=== PATIENT | female | born 1990 | race Caucasian/White ===

== ENCOUNTER 2024-01-30 09:51 | Emergency (ER) | payer SELFPAY ==
--- NOTE | 2024-01-30 11:40 | RAD REPORT ---
EXAM: Chest Pa And Lat (2 Views) HISTORY: COUGH COMPARISON: None. FINDINGS: LUNGS/PLEURA: The lungs are clear. No pleural effusions or pneumothorax. No pulmonary edema. MEDIASTINUM: The mediastinal silhouette is within normal limits. CARDIAC: The cardiac silhouette is within normal limits. UPPER ABDOMEN: No significant abnormality. BONES: No acute fracture. LINES/TUBES/OTHER: N/A IMPRESSION: No evidence of acute cardiopulmonary disease.
--- NOTE | 2024-01-30 12:44 | EDPHYS ---
Physician Documentation [facility] Name: Breanna Rocha Age: 33 yrs Sex: Female : 1990 Arrival Date: 01/30/2024 Time: 09:51 Bed 12 Private MD: ED Physician Karl Alford HPI: 01/29 12:38 This 33 yrs old Female presents to ER via Ambulatory with complaints of Flu Symptoms. bo1 12:38 Hx of exposure to child with flu positive two weeks ago. Onset: The symptoms/episode bo1 began/occurred gradually. Severity of symptoms: At their worst the symptoms were mild. Hx of green cough since gi. 12:47 Onset: The symptoms/episode began/occurred 3 week(s) ago. 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 - Infectious Disease History:: Denies. - Social history:: Smoking status: Patient reports use of chewing tobacco. ROS: 12:40 Constitutional: Negative for fever, chills, and weight loss bo1 12:40 Neck: Negative for pain at rest, 12:40 Cardiovascular: Negative for chest pain, 12:40 Respiratory: Positive for cough, Sputum production, Negative for hemoptysis, shortness of breath, wheezing, 12:40 Abdomen/GI: Negative for abdominal pain, nausea and vomiting, 12:40 All other systems are negative, Exam: 12:41 Constitutional: This is a well developed, well nourished patient who is awake, alert, bo1 and in no acute distress. 12:41 Constitutional: The patient appears alert, awake, comfortable, non-toxic, 12:41 Eyes: Sclera: no appreciated abnormality, 12:41 Chest/axilla: Inspection: normal, 12:41 Cardiovascular: Rate: normal, Rhythm: regular, Pulses: no pulse deficits are appreciated, 12:41 Respiratory: the patient does not display signs of respiratory distress, Respirations: normal, no acute changes, Breath sounds: are clear throughout, no wheezing, Vital Signs: 10:46 BP 124 / 86; Pulse 93; Resp 15; Temp 98.7; Pulse Ox 98% ; Weight 120.2 kg; Height 5 ft. jl7 7 in. ; Pain 5/10; 13:13 Pulse 90; Resp 17; Temp 98.2; Pulse Ox 99% ; jl7 10:46 Body Mass Index 41.50 (120.20 kg, 170.18 cm) jl7 10:46 Pain Scale: Adult jl7 MDM: 11:19 Medical Screening Exam initiated bo1 12:42 Differential Diagnosis flu, Bronchitis. Data reviewed: vital signs, radiologic studies, bo1 plain films. ED course: Pt has acute bronchitis and will be treated with azithromycin PO along with her child present. 01/29 10:49 Order name: XRAY Chest Pa And Lat (2 Views); Complete Time: 12:25 jl7 Administered Medications: No medications were administered Disposition Summary: 01/30/24 12:44 Discharge Ordered Notes: Location: Home bo1 Problem: new bo1 Symptoms: are unchanged bo1 Condition: Stable bo1 Diagnosis - Acute bronchitis, unspecified bo1 - Cough bo1 Followup: bo1 - With: Private Physician - When: Upon discharge from the Emergency Department - Reason: Recheck today's complaints, Continuance of care Discharge Instructions: - Discharge Summary Sheet bo1 - Acute Bronchitis, Adult bo1 - Cough, Adult bo1 Forms: - Medication Reconciliation Form bo1 - Antibiotic Education bo1 - Prescription Opioid Use bo1 - Patient Portal Instructions bo1 - Leadership Thank You Letter bo1 Prescriptions: - azithromycin 500 mg Oral tablet - take 1 tablet ORAL route daily for 10 days; 10 tablet; Refills: 0, Product bo1 Selection Permitted - Tessalon Perles 100 mg Oral Capsule - take 1 capsule ORAL route every 8 hours As needed; 15 capsule; Refills: 0, bo1 Product Selection Permitted Signatures: Dispatcher [employer] Jessica Garcia RN RN jl7 Karl Alford MD MD bo1 Corrections: (The following items were deleted from the chart) 10:50 10:50 Chest Pa And Lat (2 Views)+RAD.RAD.BRZ ordered. EDMS EDMS
--- NOTE | 2024-01-30 12:44 | ER ---
Nurse's Notes [facility] Name: Breanna Rocha Age: 33 yrs Sex: Female : 1990 Arrival Date: 01/30/2024 Time: 09:51 Bed 12 Private MD: Diagnosis: Acute bronchitis, unspecified;Cough Presentation: 01/29 10:46 Chief complaint: Patient states: Had the flu 3 weeks ago started with productive cough jl7 on giving. Coronavirus screen: At this time, the client does not indicate any symptoms associated with coronavirus-19. Ebola Screen: No symptoms or risks identified at this time. Initial Sepsis Screen: Does the patient meet any 2 criteria? No. Patient's initial sepsis screen is negative. Does the patient have a suspected source of infection? No. Patient's initial sepsis screen is negative. Risk Assessment: Do you want to hurt yourself or someone else? Patient reports no desire to harm self or others. Onset of symptoms was January 25, 2024. 10:46 Method Of Arrival: Ambulatory jl7 10:46 Acuity: ANNIE 3 jl7 Triage Assessment: 10:48 General: Appears in no apparent distress. uncomfortable, Behavior is calm, cooperative, jl7 appropriate for age. Pain: Complains of pain in back and chest Pain currently is 5 out of 10 on a pain scale. Quality of pain is described as sore from coughing. 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 - Infectious Disease History:: Denies. - Social history:: Smoking status: Patient reports use of chewing tobacco. Screenin:13 Abuse screen: Denies threats or abuse. Denies injuries from another. Nutritional jl7 screening: No deficits noted. Tuberculosis screening: No symptoms or risk factors identified. Assessment: 12:30 Reassessment: Dr. Alford at bedside assessing pt. jl7 Vital Signs: 10:46 BP 124 / 86; Pulse 93; Resp 15; Temp 98.7; Pulse Ox 98% ; Weight 120.2 kg; Height 5 ft. jl7 7 in. ; Pain 5/10; 13:13 Pulse 90; Resp 17; Temp 98.2; Pulse Ox 99% ; jl7 10:46 Body Mass Index 41.50 (120.20 kg, 170.18 cm) jl7 10:46 Pain Scale: Adult jl7 ED Course: 10:01 Patient arrived in ED. im 10:48 Triage completed. jl7 10:48 Arm band placed on right wrist. Patient placed in waiting room, Patient notified of jl7 wait time. 11:19 Karl Alford MD is Attending Physician. bo1 11:37 XRAY Chest Pa And Lat (2 Views) In Process Unspecified. EDMS 12:18 Jessica Mckeon, RN is Primary Nurse. jl7 13:13 Patient has correct armband on for positive identification. jl7 13:13 No provider procedures requiring assistance completed. Patient did not have IV access jl7 during this emergency room visit. Administered Medications: No medications were administered Medication: 13:13 VIS not applicable for this client. jl7 Outcome: 12:44 Discharge ordered by . bo1 13:13 Discharged to home ambulatory, jl7 13:13 Condition: stable 13:13 Discharge instructions given to patient, Instructed on discharge instructions, follow up and referral plans. medication usage, Demonstrated understanding of instructions, follow-up care, medications, Prescriptions given X 2, 13:14 Patient left the ED. jl7 Signatures: Dispatcher [employer] EDMS Jessica Mckeon, RN RN jl7 Tayler Lau Karl Alford MD MD bo1
[2024-01-30 13:39] VITALS: BP 124/86
[2024-01-30 13:40] VITALS: TEMP 98.2; O2SAT 99
== END 2024-01-30 13:14 | disposition home or self-care (01) ==
LOC: ER 09:51
DX: J20.9 Acute bronchitis, unspecified (principal); R05.9 Cough, unspecified; F17.220 Nicotine dependence, chewing tobacco, uncomplicated; Z88.2 Allergy status to sulfonamides; Z88.5 Allergy status to narcotic agent; Z91.040 Latex allergy status
CPT/HCPCS: 71046; 99283

== ENCOUNTER 2024-06-11 13:28 | Emergency (ER) | payer SELFPAY ==
[2024-06-11 14:25] LABS: Influenza A Ag Negative; Influenza B Ag Negative; SARS-CoV-2 Antigen Rapid Res Negative (Negative)
--- NOTE | 2024-06-11 14:35 | RAD REPORT ---
EXAMINATION: ONE VIEW CHEST XR CLINICAL INDICATION: Congestion;Cough TECHNIQUE: Frontal chest projection is submitted. Examination is limited by patient positioning and t echnique. COMPARISON: No prior exam. FINDINGS: The lungs are well inflated and clear. The heart is upper limit of normal in size. No displaced fract ures identified. IMPRESSION: No acute intrathoracic abnormalities.
--- NOTE | 2024-06-11 15:34 | EDPHYS ---
Physician Documentation [facility] Name: Breanna Rocha Age: 34 yrs Sex: Female : 1990 Arrival Date: 06/11/2024 Time: 13:28 Bed Treatment Private MD: ED Physician Melida Tejada HPI: 06/11 15:31 This 34 yrs old Female presents to ER via Ambulatory with complaints of Flu Symptoms, sp3 Sore Throat. 15:31 34-year-old female with no significant past medical history presents with chief sp3 complaint sore throat, cough, congestion and shortness of breath. She denies any fever, headache, chest pain, known sick contacts, travel history, prolonged immobilization, prior DVT or PE, or any other signs or symptoms on ROS at this time. Her biggest complaint is sore throat.. Historical: - Allergies: 13:58 Codeine; iw 13:58 Latex; iw 13:58 Sulfa (Sulfonamide Antibiotics); iw - Home Meds: 13:58 phentermine oral daily [Active]; iw - PMHx: 13:58 None; iw - PSHx: 13:58 Cholecystectomy; iw ROS: 15:32 Constitutional: Negative for fever, chills, and weight loss, Eyes: Negative for injury, sp3 pain, redness, and discharge, Neck: Negative for injury, pain, and swelling, Cardiovascular: Negative for chest pain, palpitations, and edema, Abdomen/GI: Negative for abdominal pain, nausea, vomiting, diarrhea, and constipation, Back: Negative for injury and pain, MS/Extremity: Negative for injury and deformity, Skin: Negative for injury, rash, and discoloration, Neuro: Negative for headache, weakness, numbness, tingling, and seizure, Psych: Negative for depression, anxiety, suicide ideation, homicidal ideation, and hallucinations, Allergy/Immunology: Negative for hives, rash, and allergies, Endocrine: Negative for neck swelling, polydipsia, polyuria, polyphagia, and marked weight changes, Hematologic/Lymphatic: Negative for swollen nodes, abnormal bleeding, and unusual bruising, 15:32 All other systems are negative, Exam: 15:32 Constitutional: This is a well developed, well nourished patient who is awake, alert, sp3 and in no acute distress. Head/Face: Normocephalic, atraumatic. Eyes: Pupils equal round and reactive to light, extra-ocular motions intact. Lids and lashes normal. Conjunctiva and sclera are non-icteric and not injected. Cornea within normal limits. Periorbital areas with no swelling, redness, or edema. Neck: Trachea midline, no thyromegaly or masses palpated, and no cervical lymphadenopathy. Supple, full range of motion without nuchal rigidity, or vertebral point tenderness. No Meningismus. Chest/axilla: Normal chest wall appearance and motion. Nontender with no deformity. No lesions are appreciated. Cardiovascular: Regular rate and rhythm with a normal S1 and S2. No gallops, murmurs, or rubs. Normal PMI, no JVD. No pulse deficits. Abdomen/GI: Soft, non-tender, with normal bowel sounds. No distension or tympany. No guarding or rebound. No evidence of tenderness throughout. Back: No spinal tenderness. No costovertebral tenderness. Full range of motion. Skin: Warm, dry with normal turgor. Normal color with no rashes, no lesions, and no evidence of cellulitis. MS/ Extremity: Pulses equal, no cyanosis. Neurovascular intact. Full, normal range of motion. Neuro: Awake and alert, GCS 15, oriented to person, place, time, and situation. Cranial nerves II-XII grossly intact. Motor strength 5/5 in all extremities. Sensory grossly intact. Cerebellar exam normal. Normal gait. Psych: Awake, alert, with orientation to person, place and time. Behavior, mood, and affect are within normal limits. 15:32 ENT: Mild pharyngeal erythema noted. No tonsillar exudates, peritonsillar swelling, uvular shift or any other symptoms noted. Patient does have an active cough.. Vital Signs: 13:56 BP 134 / 92; Pulse 112; Resp 19; Temp 98.9; Pulse Ox 100% on R/A; Pain 7/10; iw 13:56 Pain Scale: Adult iw MDM: 13:53 Medical Screening Exam initiated sp3 15:32 Data reviewed: vital signs, nurses notes, lab test result(s), radiologic studies. ED sp3 course: 34-year-old female with upper respiratory infection. Differential diagnosis includes bronchitis, pneumonia, COVID-19, influenza, viral illness, strep pharyngitis, among others. Workup includes chest x-ray which is negative and all swabs are also negative. Patient will receive Decadron 10 mg IM and discharged home on Medrol, Tessalon and OTC Mucinex D. Follow-up with PCP as needed.. 06/11 13:54 Order name: COVID-19 Ag + Flu A+B Ag; Complete Time: 15:06 sp3 06/11 13:54 Order name: Group A Streptococcus Rapid; Complete Time: 15:06 sp3 06/11 14:18 Order name: Throat Culture EDMS 06/11 13:54 Order name: CXR XRAY; Complete Time: 15:06 sp3 Administered Medications: 15:57 Drug: Dexamethasone IM 10 mg IM once Route: IM; Site: left gluteus; jb4 15:57 Follow up: Response: Medication administered at discharge. jb4 Disposition Summary: 06/11/24 15:33 Discharge Ordered Notes: Location: Home sp3 Condition: Stable sp3 Diagnosis - Upper respiratory infection, viral illness sp3 Followup: sp3 - With: Private Physician - When: Upon discharge from the Emergency Department - Reason: Continuance of care Discharge Instructions: - Discharge Summary Sheet sp3 - Upper Respiratory Infection, Adult sp3 Forms: - Medication Reconciliation Form sp3 - Antibiotic Education sp3 - Prescription Opioid Use sp3 - Patient Portal Instructions sp3 - Leadership Thank You Letter sp3 Prescriptions: - Tessalon Perles 100 mg Oral Capsule - take 1 capsule ORAL route every 8 hours As needed; 15 capsule; Refills: 0, sp3 Product Selection Permitted - Medrol (Robb) 4 mg Oral Tablets, Dose Pack - take 1 tablet ORAL route as directed - follow package instructions; 1 packet; sp3 Refills: 0, Product Selection Permitted Signatures: Dispatcher [employer] EDMS Melissa Cordoba RN RN iw Bryson, James, RN RN jb4 Melida Tejada MD MD sp3 Corrections: (The following items were deleted from the chart) 13:54 13:54 COVID-19 Ag + Flu A+B Ag+I.LAB.BRZ ordered. EDMS EDMS 13:54 13:54 Group A Streptococcus Rapid Sc+I.LAB.BRZ ordered. EDMS EDMS
--- NOTE | 2024-06-11 15:34 | ER ---
Nurse's Notes [facility] Name: Breanna Rocha Age: 34 yrs Sex: Female : 1990 Arrival Date: 06/11/2024 Time: 13:28 Bed Treatment Private MD: Diagnosis: Upper respiratory infection, viral illness Presentation: 06/11 13:56 Chief complaint: Patient states: cough, congestion. body aches, migraines X 2 weeks, iw started having a sore throat with pus pockets 2 days ago , + fever today. Coronavirus screen: Client presents with at least one sign or symptom that may indicate coronavirus-19. Ebola Screen: No symptoms or risks identified at this time. Initial Sepsis Screen: Does the patient meet any 2 criteria? HR > 90 bpm. Does the patient have a suspected source of infection?. Risk Assessment: Do you want to hurt yourself or someone else? Patient reports no desire to harm self or others. Onset of symptoms was May 28, 2024. 13:56 Method Of Arrival: Ambulatory iw 13:56 Acuity: ANNIE 4 iw Historical: - Allergies: 13:58 Codeine; iw 13:58 Latex; iw 13:58 Sulfa (Sulfonamide Antibiotics); iw - Home Meds: 13:58 phentermine oral daily [Active]; iw - PMHx: 13:58 None; iw - PSHx: 13:58 Cholecystectomy; iw Screenin:58 [facility] ED Fall Risk Assessment (Adult) History of falling in the last 3 months, jb4 including since admission No falls in past 3 months (0 pts) Confusion or Disorientation No (0 pts) Intoxicated or Sedated No (0 pts) Impaired Gait No (0 pts) Mobility Assist Device Used No (0 pt) Altered Elimination No (0 pt) Score/Fall Risk Level 0 - 2 = Low Risk Oriented to surroundings, Maintained a safe environment. Abuse screen: Denies threats or abuse. Nutritional screening: No deficits noted. Tuberculosis screening: No symptoms or risk factors identified. Assessment: 15:58 General: Appears in no apparent distress. uncomfortable, Behavior is calm, cooperative, jb4 appropriate for age. Pain: Complains of pain in sore throat. Neuro: Level of Consciousness is awake, alert, obeys commands, Oriented to person, place, time, situation. Cardiovascular: Patient's skin is warm and dry. Respiratory: Airway is patent Respiratory effort is even, unlabored, Respiratory pattern is regular, symmetrical. EENT: Throat is clear with gag reflex present. Derm: Skin is intact, Skin is pink, warm \T\ dry. Musculoskeletal: Circulation, motion, and sensation intact. Range of motion: intact in all extremities. Vital Signs: 13:56 BP 134 / 92; Pulse 112; Resp 19; Temp 98.9; Pulse Ox 100% on R/A; Pain 7/10; iw 13:56 Pain Scale: Adult iw ED Course: 13:35 Patient arrived in ED. cj3 13:38 Melida Tejada MD is Attending Physician. sp3 13:58 Triage completed. iw 14:14 CXR XRAY In Process Unspecified. EDMS 15:58 Patient has correct armband on for positive identification. Bed in low position. Call jb4 light in reach. Side rails up X 1. Provided Education on: plan of care. 15:58 No provider procedures requiring assistance completed. Patient did not have IV access jb4 during this emergency room visit. Administered Medications: 15:57 Drug: Dexamethasone IM 10 mg IM once Route: IM; Site: left gluteus; jb4 15:57 Follow up: Response: Medication administered at discharge. jb4 Medication: 15:58 VIS not applicable for this client. jb4 Outcome: 15:33 Discharge ordered by . sp3 15:58 Discharged to home ambulatory, jb4 15:58 Condition: stable 15:58 Discharge instructions given to patient, Instructed on discharge instructions, follow up and referral plans. medication usage, Demonstrated understanding of instructions, follow-up care, medications, Prescriptions given X 2, 15:59 Patient left the ED. jb4 Signatures: Dispatcher [employer] EDMS Melissa Cordoba, Gaurang Ferguson RN, RN RN jb4 Melida Tejada MD MD sp3 Ammy Cummings cj3
[2024-06-11] MEDS ORDERED: dexAMETHasone 10 MG/ML VIAL ONE (15:44)
[2024-06-11 16:31] VITALS: BP 134/92; TEMP 98.9; O2SAT 100
== END 2024-06-11 15:59 | disposition home or self-care (01) ==
LOC: ER 13:28
DX: B34.9 Viral infection, unspecified (principal); J06.9 Acute upper respiratory infection, unspecified; Z11.52 Encounter for screening for COVID-19
CPT/HCPCS: 36415; 71045; 87070; 87428; J1100

== ENCOUNTER 2024-11-22 11:45 | Emergency (ER) | payer SELFPAY ==
[2024-11-22] MEDS ORDERED: ONDANSETRON 4 MG/2 ML VIAL ONE (13:18)
[2024-11-22] MEDS ORDERED: KETOROLAC 30 MG/ML INJ ONE (13:18)
[2024-11-22] MEDS ORDERED: DIAZEPAM 5 MG TABLET ONE (13:19)
[2024-11-22] MEDS ORDERED: NA CHLORIDE 0.9% 1,000 ML ONE (13:19)
[2024-11-22] MEDS ORDERED: FENTANYL CITR 100 MCG/2 ML ONE (13:19)
[2024-11-22 13:49] LABS: Absolute Lymphocytes (CBC) 2.6 K/uL (0.7-4.9); Hematocrit 39.6 % (36.0-45.0); Hemoglobin 13.3 g/dL (12.0-15.0); MCH 26.9 pg (27.0-35.0); MCHC 33.5 g/dL (32.0-36.0); MCV 80.4 fL (80-100); MPV 8.1 fL (7.6-11.3); Nucleated RBC Absolute Count 0.0 (0-0); Nucleated Red Blood Cells % 0.0 % (0-0); RBC Red Blood Cell Count 4.93 M/uL (3.86-4.86); White Blood Count 8.60 thou/uL (4.3-10.9)
[2024-11-22 14:09] LABS: ALT/SGPT 31.0 U/L (13-56); Albumin 3.9 g/dL (3.4-5.0); Albumin/Globulin Ratio 1.1 (1.1-1.8); Alkaline Phosphatase 74.0 U/L (45-117); Anion Gap 8.8 mEq/L (5.0-15.0); BUN Blood Urea Nitrogen 9.0 mg/dL (7-18); Globulin 3.7 g/dL (2.3-3.5); Glucose Level 84.0 mg/dL (74-106)
[2024-11-22 14:10] LABS: AST/SGOT 24.0 U/L (15-37); Potassium 3.8 mEq/L (3.5-5.1)
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
--- NOTE | 2024-11-22 16:57 | EDPHYS ---
Physician Documentation [facility] Name: Breanna Rocha Age: 34 yrs Sex: Female : 1990 Arrival Date: 11/22/2024 Time: 11:45 Bed 19 Private MD: ED Physician Saul Gomes HPI: 11/22 16:38 This 34 yrs old Female presents to ER via Ambulatory with complaints of Neck tierra Problem. 16:38 The patient or guardian complains of pain, that is acute. The symptoms are located at tierra the cervical spine. Onset: The symptoms/episode began/occurred this morning, today. Context: The problem was sustained at home, The neck injury/problem resulted from movement. 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 - Infectious Disease History:: Denies. - Social history:: Smoking status: Patient reports the use of cigarette tobacco products, smokes one-half pack cigarettes per day. ROS: 16:53 Constitutional: Negative for fever, chills, and weight loss, Eyes: Negative for injury, tierra pain, redness, and discharge, ENT: Negative for injury, pain, and discharge, Cardiovascular: Negative for chest pain, palpitations, and edema, Respiratory: Negative for shortness of breath, cough, wheezing, and pleuritic chest pain, Abdomen/GI: Negative for abdominal pain, nausea, vomiting, diarrhea, and constipation, Back: Negative for injury and pain, : Negative for injury, bleeding, discharge, and swelling, MS/Extremity: Negative for injury and deformity, Skin: Negative for injury, rash, and discoloration, Neuro: Negative for headache, weakness, numbness, tingling, and seizure, Psych: Negative for depression, anxiety, suicide ideation, homicidal ideation, and hallucinations, Allergy/Immunology: Negative for hives, rash, and allergies, Endocrine: Negative for neck swelling, polydipsia, polyuria, polyphagia, and marked weight changes, Hematologic/Lymphatic: Negative for swollen nodes, abnormal bleeding, and unusual bruising, 16:53 Neck: Positive for pain with movement, pain at rest, tenderness, of the occiput, right mid cervical area and right trapezius, Exam: 16:53 Constitutional: This is a well developed, well nourished patient who is awake, alert, tierra and in no acute distress. Head/Face: Normocephalic, atraumatic. Eyes: Pupils equal round and reactive to light, extra-ocular motions intact. Lids and lashes normal. Conjunctiva and sclera are non-icteric and not injected. Cornea within normal limits. Periorbital areas with no swelling, redness, or edema. ENT: Nares patent. No nasal discharge, no septal abnormalities noted. Tympanic membranes are normal and external auditory canals are clear. Oropharynx with no redness, swelling, or masses, exudates, or evidence of obstruction, uvula midline. Mucous membranes moist. Chest/axilla: Normal chest wall appearance and motion. Nontender with no deformity. No lesions are appreciated. Cardiovascular: Regular rate and rhythm with a normal S1 and S2. No gallops, murmurs, or rubs. Normal PMI, no JVD. No pulse deficits. Respiratory: Lungs have equal breath sounds bilaterally, clear to auscultation and percussion. No rales, rhonchi or wheezes noted. No increased work of breathing, no retractions or nasal flaring. Abdomen/GI: Soft, non-tender, with normal bowel sounds. No distension or tympany. No guarding or rebound. No evidence of tenderness throughout. Back: No spinal tenderness. No costovertebral tenderness. Full range of motion. Skin: Warm, dry with normal turgor. Normal color with no rashes, no lesions, and no evidence of cellulitis. MS/ Extremity: Pulses equal, no cyanosis. Neurovascular intact. Full, normal range of motion., bilateral aka Neuro: Awake and alert, GCS 15, oriented to person, place, time, and situation. Cranial nerves II-XII grossly intact. Motor strength 5/5 in all extremities. Sensory grossly intact. Cerebellar exam normal. Normal gait. Psych: Awake, alert, with orientation to person, place and time. Behavior, mood, and affect are within normal limits. 16:53 Neck: External neck: tenderness, that is moderate, of the occiput, right mid cervical area and right trapezius, C-spine: appears grossly normal, no acute changes, Vital Signs: 12:11 BP 140 / 84; Pulse 93; Resp 16; Temp 98.3(O); Pulse Ox 99% ; Weight 122.47 kg; Height 5 db ft. 7 in. ; Pain 7/10; 15:03 BP 137 / 79; Pulse 85; Resp 16; Pulse Ox 99% ; bp 12:11 Body Mass Index 42.29 (122.47 kg, 170.18 cm) db 12:11 Pain Scale: Adult db MDM: 12:11 Medical Screening Exam initiated tierra 16:54 Data reviewed: lab test result(s), radiologic studies, CT scan. Consideration of tierra Admission/Observation Escalation of care including admission/observation considered. I considered the following discharge prescriptions or medication management in the emergency department Medications were administered in the Emergency Department. See MAR. Independent interpretation of the following test(s) in the Emergency Department CT Scan: My interpretation is ct c spine. Test considered but Not performed: MRI: no mri. Historians other than the Patient: Family Member: well informed. Care significantly affected by the following chronic conditions: meningitis, [place], nerve damage. Counseling: I had a detailed discussion with the patient and/or guardian regarding the historical points, exam findings, and any diagnostic results supporting the discharge/admit diagnosis, lab results, radiology results, the need for outpatient follow up, for definitive care, a family practitioner. 11/22 12:12 Order name: CBC with Diff; Complete Time: 16: [facility] 11/22 12:12 Order name: CMP; Complete Time: 16: [facility] 11/22 12:12 Order name: PREGU; Complete Time: : [facility] 11/22 16:26 Order name: CT C Spine [facility] Administered Medications: 13:41 Not Given (Patient Refused): fentanyl (pf)50 mcg IVP once bp 13:41 Drug: Decadron - Dexamethasone IVP 10 mg IVP once Route: IVP; Site: right forearm; bp 13:42 Drug: NS 0.9% IV 1000 ml IV at 1000 ml once; to be given as a bolus over 60 minutes bp Route: IV; Rate: 1000 ml; Site: right forearm; 13:42 Drug: Ondansetron IVP 8 mg IVP once; over 2 minutes Route: IVP; Site: right forearm; bp 13:42 Drug: Diazepam PO 10 mg PO once Route: PO; bp 13:42 Drug: Ketorolac IVP 30 mg IVP once Route: IVP; Site: right forearm; bp Disposition Summary: 11/22/24 16:56 Discharge Ordered Notes: Location: Home tierra Problem: new tierra Symptoms: have improved tierra Condition: Stable tierra Diagnosis - Strain of muscle, fascia and tendon at neck level, initial encounter tierra - Torticollis tierra Followup: tierra - With: Private Physician - When: 2 - 3 days - Reason: Recheck today's complaints, Continuance of care, Re-evaluation by your physician Discharge Instructions: - Discharge Summary Sheet tierra - Acute Torticollis, Adult tierra - Cervical Sprain tierra - Cervical Sprain, [id number] Forms: - Medication Reconciliation Form tierra - Antibiotic Education tierra - Prescription Opioid Use tierra - Patient Portal Instructions tierra - Leadership Thank You Letter tierra - Work release form iw Prescriptions: - Diclofenac Sodium 75 mg Oral tablet, delayed release (enteric coated) - take 1 tablet ORAL route 2 times per day; 20 tablet; Refills: 0, Product tierra Selection Permitted - Tramadol 50 mg Oral tablet - take 1 tablet ORAL route every 8 hours as needed; 20 tablet; Refills: 0, [facility] Product Selection Permitted - methocarbamol 750 mg Oral tablet - take 1 tablet ORAL route every 4 hours; 30 tablet; Refills: 0, Product tierra Selection Permitted - Dexamethasone 4mg Oral tablet - take 1 tablet ORAL route daily for 4 days; 4 tablet; Refills: 0, Product tierra Selection Permitted Signatures: Dispatcher [employer] EDWI Saul Gomes MD MD cha Peltier, Brian, RN RN Larissa Enrique, RN RN db Corrections: (The following items were deleted from the chart) 12:13 12:13 CBC+H.LAB.BRZ ordered. EDMS EDMS 12:13 12:13 COMPREHENSIVE METABOLIC PANEL+C.LAB.BRZ ordered. EDMS EDMS 12:13 12:13 Test, Urine+UC.LAB.BRZ ordered. EDMS EDMS 16:27 16:27 C Spine Wo Con+CT.RAD.BRZ ordered. EDMS EDMS
--- NOTE | 2024-11-22 18:09 | RAD REPORT ---
EXAM: C Spine Wo Con HISTORY: Numbness COMPARISON: None TECHNIQUE: Multiple contiguous axial images were obtained in a CT of the cervical spine without contr ast. Sagittal and coronal reformats were performed. One or more of the following dose reduction techniques were used: Automated exposure control, adjustment of the mA and kV according to patient si ze, and iterative reconstruction. Unless otherwise specified, incidental findings do not require dedicated imaging follow-up. FINDINGS: :No fracture is seen. No dislocation A large disc herniation not seen. IMPRESSION: No fracture visualized. If patient continues to have symptoms to suggest spinal canal pathology then MRI would be recommended
[2024-11-22 18:25] VITALS: TEMP 98.3; O2SAT 99
[2024-11-22 18:26] VITALS: BP 137/79
== END 2024-11-22 18:01 | disposition home or self-care (01) ==
LOC: ER 11:45
DX: S16.1XXA Strain of muscle, fascia and tendon at neck level, initial encounter (principal); M43.6 Torticollis
CPT/HCPCS: 36415; 72125; 80053; 81025; 85025; 96374; 96375; 99284; J1100; J1885; J2405; J3010; J7030